=== PATIENT | male | born 1970 | race Caucasian/White ===

== ENCOUNTER 2019-02-02 08:09 | Emergency (ER) | payer BC ==
[2019-02-02] MEDS ORDERED: ACETAMINOPHEN 500 MG TAB PO ONE (08:51)
[2019-02-02] MEDS ORDERED: LIDOCAINE 1% 10 ML VIAL INJ ONE ×2 (08:51→12:23)
[2019-02-02] MEDS ORDERED: SODIUM CHLORIDE 0.9% 1000ML 1,000 ML IVS ONE ×2 (08:51→10:06)
[2019-02-02] MEDS ORDERED: TETANUS,DIPHTHERIA,PERTUSSIS 1 EA SYG IM ONE (08:51)
--- NOTE | 2019-02-02 09:02 | ED.PDOC ---
History of Present Illness - General Time Seen by Provider: 02/02/19 08:48 - History of Present Illness Initial Comments: 48 yo M PMH HTN presents to ED and daughter at bedside, family friend and freight flagman also at bedside, s/p mechanical accidental fall missing last step with daughter in his arms resulting in L knee laceration 1 hour prior to arrival. Denies head injury LOC fever chills nausea vomiting diarrhea chest pain sob diaphoresis neck pain or pain of any kind other than knee. Pt. denies h/o anxiety depression but feels dizziness at this time which is resolving in the department. No change in diet rest bowel or bladder denies smoking admits social drinking admits FH CAD has PMD for follow up no other c/o today. Allergies/Adverse Reactions: Allergies NO KNOWN ALLERGY Allergy (Verified 02/02/19 10:51) Home Medications: Ambulatory Orders Acetaminophen [Tylenol] 325 mg PO Q6H PRN #30 tab 02/02/19 Cephalexin Monohydrate [Keflex] 500 mg PO Q6H #40 cap 02/02/19 Doxycycline (Monohydrate) [Doxycycline Monohydrate] 100 mg PO BID #20 cap 02/02/19 Ibuprofen [Ibu] 600 mg PO Q6H PRN #30 tab 02/02/19 Polyethylene Glycol 3350 [Miralax] 17 gm PO DAILY 02/02/19 Review of Systems - Review of Systems Constitutional: States: other - Dizziness EENTM: States: no symptoms reported Respiratory: States: no symptoms reported Cardiology: States: no symptoms reported Gastrointestinal/Abdominal: States: no symptoms reported Genitourinary: States: no symptoms reported Musculoskeletal: States: no symptoms reported Skin: States: see HPI, other - Left knee laceration Neurological: States: other - Dizziness Endocrine: States: no symptoms reported All other Systems: Reviewed and Negative Past Medical History (General) - Patient Medical History Hx Stroke: No Hx Asthma: No Hx of COPD: No Hx Cardiac Disorders: No Hx Hypertension: Yes Hx Thyroid Disease: No Hx Diabetes: No Hx Gastroesophageal Reflux: No Surgical History: no surgical history Physical Exam - Physical Exam General Appearance: Anxious, No apparent distress Head Injury: no evidence of injury Eye Exam: bilateral normal ENT Exam: no evidence of ENT injury Cardiovascular/Respiratory: tachycardia Gastrointestinal/Abdominal: non tender, soft Back Exam: normal inspection Extremity Exam: tenderness, other - laceration L knee eliptical about 7-10 cm Neurologic: no motor/sensory deficits Skin Exam: other - laceration left knee - Narcisa Coma Score Best Eye Response ([place]): (4) open spontaneously Best Verbal Response ([place]): (5) oriented Best Motor Response ([place]arcisa): (6) obeys commands Progress - Progress Progress: 02/02/19 09:05 A/P-Fall, L Knee Contusion, L Knee laceration, Dizziness 1.tylenol tetanus clean and dress wound after laceration repair iv bolus fall precautions ekg cxr xr left knee cbc cmp trop if grossly unremarkable and good repair d/c follow up pcp wound check 48 hours tylenol ibuprofen keflex doxycycline EKG-non specific TW changes Sinus Tachycardia 02/02/19 10:30 Repeat EKG 10:30 am non specific TW changes No STEMI Sinus Tachycardia resolved after fluids and ED intervention 02/02/19 12:15 and anabaptist family friends now at bedside, re-irrigated wound copious hydration to address small foreign bodies will repeat XR and begin repair 02/02/19 14:28 Majority of debris irrigated from wound, final irrigation with copious saline pt declined repeat XR understands small debris may be present - Results/Orders Results/Orders: 02/02/19 08:51 IV:Start .ONCE Wound/Incision:Care PRN 02/02/19 08:54 Fall Prevention .PRN Miscellaneous Nursing Order .ONCE Telemetry Q4H Wound Irrigation PRN 02/02/19 09:00 EKG STAT Pulse Ox, Continuous Monitoring STAT 02/02/19 09:58 EKG Assessment ONCE 02/02/19 10:00 EKG STAT 02/02/19 10:06 Sodium Chloride 0.9% 1000ML [Ns 1000 ml] 1,000 ml IVS ONCE 02/03/19 09:00 Pulse Ox, Continuous Monitoring STAT 02/04/19 09:00 Pulse Ox, Continuous Monitoring STAT 02/05/19 09:00 Pulse Ox, Continuous Monitoring STAT Laboratory Results - last 24 hr 02/02/19 02/02/19 02/02/19 08:40 08:40 08:40 WBC 7.1 RBC 5.78 Hgb 16.8 Hct 49.6 MCV 85.8 MCH 29.2 MCHC 34.0 RDW 13.1 Plt Count 293 MPV 7.2 L Absolute Neuts (auto) 4.00 Absolute Lymphs (auto) 2.40 Absolute Monos (auto) 0.60 Absolute Eos (auto) 0.10 Absolute Basos (auto) 0.00 Neutrophils % 56.2 Lymphocytes % 33.4 Monocytes % 7.9 Eosinophils % 2.1 Basophils % 0.4 Sodium 137 Potassium 3.5 L Chloride 102 Carbon Dioxide 24 Anion Gap 14.5 BUN 19 H Creatinine 0.95 BUN/Creatinine Ratio 20.0 Random Glucose 123 H Serum Osmolality 277.4 Calcium 9.1 Total Bilirubin 0.5 AST 26 ALT 44 Alkaline Phosphatase 88 Troponin I < 0.02 Serum Total Protein 7.7 Albumin 4.3 Globulin 3.4 Albumin/Globulin Ratio 1.3 EXAM DESCRIPTION: Chest,1 View CLINICAL HISTORY: 48 years Male, dizziness COMPARISON: None. FINDINGS: Heart size and pulmonary vessels are within normal limits. There is no pneumothorax or pleural effusion. The lungs are clear bilaterally. The soft tissues are unremarkable. No acute osseous findings. IMPRESSION: No acute cardiopulmonary abnormality. Electronically signed by: Theo Muñoz MD 02/02/2019 9:58 AM CDT EXAM DESCRIPTION: Knee,Left Complete CLINICAL HISTORY: dizziness knee pain post trauma COMPARISON: None. IMPRESSION: 3 views of the left knee show no acute fracture, focal bone destruction, or joint dislocation. Large area of soft tissue laceration anterior and lateral to the tibia plateau with radiopaque foreign bodies in the soft tissue is seen. No joint effusion. Mild osteoarthritic changes of the left knee with periarticular osteophytes of the patellofemoral compartment and medial tibiofemoral compartment. Electronically signed by: John Nicole MD 02/02/2019 9:59 AM CDT EXAM DESCRIPTION: Left knee, 3 radiographs CLINICAL HISTORY: r/o foreign body after irrigation FINDINGS/ IMPRESSION: Laceration anterior lateral infrapatellar knee. Several tiny radiopaque foreign bodies in the anterolateral soft tissues the largest of which is about 1-2 mm. No significant joint effusion. No fracture Electronically signed by: Juancho Mishra MD 02/02/2019 11:09 AM CDT EXAM DESCRIPTION: Knee,Left Complete CLINICAL HISTORY: 48 years Male, r/o foreign bodies COMPARISON: February 02, 2019 10:48 AM Findings/impression: No acute fracture or dislocation. Mild medial compartment narrowing. Small scattered osteophytes. Redemonstrated infrapatellar soft tissue laceration, edema and gas. There are tiny radiopaque foreign bodies anterior to the tibia the largest measuring 1 mm, although the burden has decreased in the interim. No significant joint effusion. Electronically signed by: Theo Muñoz MD 02/03/20 1:05 PM CDT Procedures - Laceration/Wound Repair Left Lower Knee Wound Length (cm): 7 Wound's Depth, Shape: superficial, irregular Wound Explored: contaminated Irrigated w/ Saline (cc's): 180 Betadine Prep?: No Anesthesia: 1% Lidocaine Volume Anesthetic (cc's): 20 Wound Debrided: extensive Wound Repaired With: sutures Suture Size/Type: 3:0, prolene Number of Sutures: 24 Layer Closure?: No Sterile Dressing Applied?: Yes - bacitracin and guaze Departure - Departure Clinical Impression: Fall (on) (from) other stairs and steps, initial encounter Laceration of knee with foreign body Qualifiers: Encounter type: initial encounter Laterality: left Qualified Code(s): S81.022A - Laceration with foreign body, left knee, initial encounter Contusion of knee Qualifiers: Encounter type: initial encounter Laterality: left Qualified Code(s): S80.02XA - Contusion of left knee, initial encounter Time of Disposition: 14:33 Disposition: Discharge to Home or Self Care Condition: Good Instructions: DI for Trauma Referrals: GREER DOS SANTOS [Primary Care Provider] - 1-2 Days (wound check in 2 days suture removal in 7-10 days) Prescriptions: Acetaminophen [Tylenol] 325 mg PO Q6H PRN #30 tab PRN Reason: Pain Cephalexin Monohydrate [Keflex] 500 mg PO Q6H #40 cap Doxycycline (Monohydrate) [Doxycycline Monohydrate] 100 mg PO BID #20 cap Ibuprofen [Ibu] 600 mg PO Q6H PRN #30 tab PRN Reason: Pain Home Medications: Ambulatory Orders Acetaminophen [Tylenol] 325 mg PO Q6H PRN #30 tab 02/02/19 Cephalexin Monohydrate [Keflex] 500 mg PO Q6H #40 cap 02/02/19 Doxycycline (Monohydrate) [Doxycycline Monohydrate] 100 mg PO BID #20 cap 02/02/19 Ibuprofen [Ibu] 600 mg PO Q6H PRN #30 tab 02/02/19 Polyethylene Glycol 3350 [Miralax] 17 gm PO DAILY 02/02/19
--- NOTE | 2019-02-02 10:00 | RAD ---
EXAM DESCRIPTION: Chest,1 View CLINICAL HISTORY: 48 years Male, dizziness COMPARISON: None. FINDINGS: Heart size and pulmonary vessels are within normal limits. There is no pneumothorax or pleural effusion. The lungs are clear bilaterally. The soft tissues are unremarkable. No acute osseous findings. IMPRESSION: No acute cardiopulmonary abnormality. Electronically signed by: Theo Muñoz MD 02/02/2019 9:58 AM CDT
--- NOTE | 2019-02-02 10:01 | RAD ---
EXAM DESCRIPTION: Knee,Left Complete CLINICAL HISTORY: dizziness knee pain post trauma COMPARISON: None. IMPRESSION: 3 views of the left knee show no acute fracture, focal bone destruction, or joint dislocation. Large area of soft tissue laceration anterior and lateral to the tibia plateau with radiopaque foreign bodies in the soft tissue is seen. No joint effusion. Mild osteoarthritic changes of the left knee with periarticular osteophytes of the patellofemoral compartment and medial tibiofemoral compartment. Electronically signed by: John Nicole MD 02/02/2019 9:59 AM CDT
[2019-02-02] MEDS ORDERED: MECLIZINE HCL 12.5 MG TAB PO ONE (10:06)
--- NOTE | 2019-02-02 11:11 | RAD ---
EXAM DESCRIPTION: Left knee, 3 radiographs CLINICAL HISTORY: r/o foreign body after irrigation FINDINGS/ IMPRESSION: Laceration anterior lateral infrapatellar knee. Several tiny radiopaque foreign bodies in the anterolateral soft tissues the largest of which is about 1-2 mm. No significant joint effusion. No fracture Electronically signed by: Juancho Mishra MD 02/02/2019 11:09 AM CDT
[2019-02-02 12:48] VITALS: TEMP 98.2
--- NOTE | 2019-02-02 13:06 | RAD ---
EXAM DESCRIPTION: Knee,Left Complete CLINICAL HISTORY: 48 years Male, r/o foreign bodies COMPARISON: February 02, 2019 10:48 AM Findings/impression: No acute fracture or dislocation. Mild medial compartment narrowing. Small scattered osteophytes. Redemonstrated infrapatellar soft tissue laceration, edema and gas. There are tiny radiopaque foreign bodies anterior to the tibia the largest measuring 1 mm, although the burden has decreased in the interim. No significant joint effusion. Electronically signed by: Theo Muñoz MD 02/02/2019 1:05 PM CDT
[2019-02-02] MEDS ORDERED: ONDANSETRON INJ 4 MG/2 ML VIAL IV ONE (14:09)
[2019-02-02] MEDS ORDERED: MORPHINE SULFATE INJ 10 MG/ML VIAL IV ONE (14:09)
[2019-02-02] MEDS ORDERED: BACITRACIN 0.9 GM UD PCKT TOP ONE (14:26)
[2019-02-02] MEDS ORDERED: NEOMYCIN-BACITRACIN-POLYMYXIN 0.9 GM UD TOP ONE (14:29)
[2019-02-02 17:59] VITALS: BP 143/90; O2SAT 99
== END 2019-02-02 15:00 | disposition home or self-care (01) ==
LOC: ER 08:09 → EDBD 08:09 → ER 15:00
DX: S81.022A Laceration with foreign body, left knee, initial encounter (principal); R42 Dizziness and giddiness; R00.0 Tachycardia, unspecified; I10 Essential (primary) hypertension; W10.9XXA Fall (on) (from) unspecified stairs and steps, initial encounter; Y92.9 Unspecified place or not applicable
CPT/HCPCS: 71045; 73562; 80053; 84484; 85025; 90471; 90715; 93005; J2270; J2405; J7030